=== PATIENT | male | born 1990 ===

== ENCOUNTER 2025-01-16 20:21 | Outpatient (REF) | payer BC, SELFPAY ==
[2025-01-16 20:02] LABS: ALT 23 U/L (16-63); AST 62 U/L (15-37); Albumin 2.5 g/dL (3.4-5.0); Alkaline Phosphatase 222 U/L (46-116); Anion Gap 8.2 mmol/L (3-11); BUN 8 mg/dL (7-18); Bilirubin, Total 0.8 mg/dL (0.2-1.0); CO2 30.8 mmol/L (21.0-32.0); CREATININE 0.7 mg/dL (0.70-1.30); Calcium 8.5 mg/dL (8.5-10.1); Chloride 105 mmol/L (98-107); Glucose 99 mg/dL (74-106); Potassium 3.2 mmol/L (3.5-5.1); Sodium 144 mmol/L (136-145)
== END 2025-01-16 20:22 | disposition home or self-care (01) ==
LOC: LBN 20:21
PROVIDERS: PCP Registered Nurse; Visit Provider Internal Medicine Infectious Disease
DX: R78.81 Bacteremia (principal)
CPT/HCPCS: 80053; 85025; 86140

== ENCOUNTER 2025-01-29 18:37 | Outpatient (REF) | payer BC, SELFPAY ==
[2025-01-29 19:08] LABS: Abs Immature Grans 0.07 10^3/uL (0.0-0.06); Absolute Basophil Count 0.03 10^3/uL (0.0-0.2); Absolute Eosinophil Count 0.23 10^3/uL (0.0-0.7); Absolute Lymphocyte Count 0.76 10^3/uL (1.2-3.4); Absolute Monocyte Count 0.87 10^3/uL (0.1-0.8); Absolute Neutrophil Count 5.86 10^3/uL (1.2-6.7); Basophils % 0.4 %; Eosinophils % 2.9 %; HCT 25.1 % (40.0-50.0); HGB 7.7 g/dL (13.5-17.5); Immature Grans % 0.9 %; Lymphocytes % 9.7 %; MCH 26.8 pg (27.0-33.0); MCHC 30.7 % (32.0-36.0); MCV 88 fL (80-95); MPV 9.9 fL (8.0-11.0); Monocytes % 11.1 %; Platelet Count 423 10^3/uL (130-400); RBC 2.87 10^6/uL (4.36-5.78); RDW 17.7 % (11.8-14.1); RDW-SD 55.8 fL; WBC 7.82 10^3/uL (4.4-10.8)
[2025-01-29 19:47] LABS: ALT 30 U/L (16-63); AST 61 U/L (15-37); Albumin 2.2 g/dL (3.4-5.0); Alkaline Phosphatase 347 U/L (46-116); Anion Gap 9.6 mmol/L (3-11); BUN 7 mg/dL (7-18); Bilirubin, Total 1.3 mg/dL (0.2-1.0); CO2 27.4 mmol/L (21.0-32.0); CREATININE 0.6 mg/dL (0.70-1.30); Calcium 8.1 mg/dL (8.5-10.1); Chloride 105 mmol/L (98-107); Estimated GFR 129.91 (mL/min/1.73m2); Glucose 129 mg/dL (74-106); Potassium 3.1 mmol/L (3.5-5.1); Sodium 142 mmol/L (136-145); Total Protein 5.5 g/dL (6.4-8.2)
== END 2025-01-29 18:38 | disposition home or self-care (01) ==
LOC: LBN 18:37
PROVIDERS: Internal Medicine Infectious Disease; PCP Registered Nurse; Visit Provider Registered Nurse
DX: R78.81 Bacteremia (principal)
CPT/HCPCS: 80053; 85025; 86140

== ENCOUNTER 2025-02-05 19:08 | Outpatient (REF) | payer BC, SELFPAY ==
[2025-02-05 19:42] LABS: Abs Immature Grans 0.07 10^3/uL (0.0-0.06); Absolute Basophil Count 0.04 10^3/uL (0.0-0.2); Absolute Eosinophil Count 0.28 10^3/uL (0.0-0.7); Absolute Lymphocyte Count 1.07 10^3/uL (1.2-3.4); Absolute Monocyte Count 0.98 10^3/uL (0.1-0.8); Absolute Neutrophil Count 3.77 10^3/uL (1.2-6.7); Basophils % 0.6 %; Eosinophils % 4.5 %; HGB 8.5 g/dL (13.5-17.5); Immature Grans % 1.1 %; Lymphocytes % 17.2 %; MCH 26.5 pg (27.0-33.0); MCHC 29.3 % (32.0-36.0); MCV 90 fL (80-95); MPV 9.9 fL (8.0-11.0); Monocytes % 15.8 %; Neutrophils % 60.8 %; Platelet Count 454 10^3/uL (130-400); RBC 3.21 10^6/uL (4.36-5.78); RDW 17.2 % (11.8-14.1); RDW-SD 56.7 fL; WBC 6.21 10^3/uL (4.4-10.8)
[2025-02-05 20:08] LABS: ALT 43 U/L (16-63); AST 73 U/L (15-37); Albumin 2.3 g/dL (3.4-5.0); Alkaline Phosphatase 701 U/L (46-116); Anion Gap 9.5 mmol/L (3-11); BUN 12 mg/dL (7-18); Bilirubin, Total 0.9 mg/dL (0.2-1.0); C-Reactive Protein 5.83 mg/dL (<or=0.5); CO2 28.5 mmol/L (21.0-32.0); CREATININE 0.5 mg/dL (0.70-1.30); Calcium 8.8 mg/dL (8.5-10.1); Chloride 105 mmol/L (98-107); Estimated GFR 137.26 (mL/min/1.73m2); Glucose 84 mg/dL (74-106); Potassium 4.5 mmol/L (3.5-5.1); Sodium 143 mmol/L (136-145); Total Protein 5.7 g/dL (6.4-8.2)
== END 2025-02-05 19:09 | disposition home or self-care (01) ==
LOC: LBN 19:08
PROVIDERS: PCP Registered Nurse; Visit Provider Internal Medicine Infectious Disease
DX: R78.81 Bacteremia (principal)
CPT/HCPCS: 80053; 85025; 86140

== ENCOUNTER 2025-02-12 19:12 | Outpatient (REF) | payer BC, SELFPAY ==
[2025-02-12 20:27] LABS: Abs Immature Grans 0.14 10^3/uL (0.0-0.06); Absolute Basophil Count 0.09 10^3/uL (0.0-0.2); Absolute Eosinophil Count 0.19 10^3/uL (0.0-0.7); Absolute Lymphocyte Count 1.27 10^3/uL (1.2-3.4); Absolute Monocyte Count 1.26 10^3/uL (0.1-0.8); Absolute Neutrophil Count 7.25 10^3/uL (1.2-6.7); Basophils % 0.9 %; Eosinophils % 1.9 %; HCT 30.5 % (40.0-50.0); HGB 9.2 g/dL (13.5-17.5); Immature Grans % 1.4 %; Lymphocytes % 12.5 %; MCH 25.8 pg (27.0-33.0); MCHC 30.2 % (32.0-36.0); MCV 85 fL (80-95); MPV 10.6 fL (8.0-11.0); Monocytes % 12.4 %; Neutrophils % 70.9 %; Platelet Count 434 10^3/uL (130-400); RBC 3.57 10^6/uL (4.36-5.78); RDW 16.9 % (11.8-14.1); RDW-SD 52.8 fL
[2025-02-12 20:39] LABS: ALT 75 U/L (16-63); AST 109 U/L (15-37); Albumin 2.6 g/dL (3.4-5.0); Alkaline Phosphatase 882 U/L (46-116); Anion Gap 6.7 mmol/L (3-11); BUN 18 mg/dL (7-18); Bilirubin, Total 0.7 mg/dL (0.2-1.0); C-Reactive Protein 3.05 mg/dL (<or=0.5); CO2 29.3 mmol/L (21.0-32.0); CREATININE 0.7 mg/dL (0.70-1.30); Calcium 8.9 mg/dL (8.5-10.1); Chloride 102 mmol/L (98-107); Creatine Kinase 97 U/L (39-308); Estimated GFR 123.23 (mL/min/1.73m2); Glucose 107 mg/dL (74-106); Potassium 4.6 mmol/L (3.5-5.1); Sodium 138 mmol/L (136-145); Total Protein 5.8 g/dL (6.4-8.2)
== END 2025-02-12 19:13 | disposition home or self-care (01) ==
LOC: LBN 19:12
PROVIDERS: PCP Registered Nurse; Visit Provider Internal Medicine Infectious Disease
DX: R78.81 Bacteremia (principal)
CPT/HCPCS: 80053; 82550; 85025; 86140